=== PATIENT | male | born 1975 ===

== ENCOUNTER 2017-06-21 17:48 | Emergency (ER) | payer SELFPAY ==
[2017-06-21 18:03] VITALS: BP 116/72
--- NOTE | 2017-06-21 19:47 | UC ---
Back Pain HPI - HPI Summary HPI Summary: 42 yo male with the onset of right sided LBP when he woke up this AM about 1 AM he was doing work related defense tactics and suspect he injured himself them Today is his day off Pain with movement Hard to get comfortable Has not taken any OTC meds feels like he will have no trouble working tomorrow however want injury evaluated in case things don't improve no bowel or bladder dysfunction - History of Current Complaint Chief Complaint: UCBackPain Stated Complaint: BACK INJURY Time Seen by Provider: 06/21/17 19:17 Hx Obtained From: Patient Onset/Duration: Gradual Onset, Lasting Hours Timing: Constant Severity Initially: Mild Severity Currently: Moderate Pain Intensity: 4 Pain Scale Used: 0-10 Numeric Back Pain: Is Discrete @ - see image Character: Aching, Spasmodic, Stiffness Aggravating Factor(s): Movement Alleviating Factor(s): Rest Associated Signs And Symptoms: Positive: Negative Related History: Occupational Injury - Allergies/Home Medications Allergies/Adverse Reactions: Allergies Allergy/AdvReac Type Severity Reaction Status Date / Time No Known Allergies Allergy Verified 06/21/17 18:04 PMH/Surg Hx/FS Hx/Imm Hx Previously Healthy: Yes - norcardia infection (skin) - Surgical History Surgical History: Yes Surgery Procedure, Year, and Place: right leg - Family History Known Family History: Negative: Cardiac Disease, Hypertension, Diabetes - Social History Alcohol Use: Occasionally Substance Use Type: None Smoking Status (MU): Never Smoked Tobacco Review of Systems Constitutional: Negative Skin: Negative Eyes: Negative ENT: Negative Respiratory: Negative Cardiovascular: Negative Gastrointestinal: Negative Genitourinary: Negative Motor: Negative Neurovascular: Negative Musculoskeletal: Myalgia Neurological: Negative Psychological: Negative Is Patient Immunocompromised?: No All Other Systems Reviewed And Are Negative: Yes Physical Exam Triage Information Reviewed: Yes Appearance: Well-Appearing, No Pain Distress, Well-Nourished Vital Signs: Initial Vital Signs Temp 96.8 F 06/21/17 17:57 Pulse 50 06/21/17 17:57 Resp 18 06/21/17 17:57 BP 116/72 06/21/17 17:57 Pulse Ox 99 06/21/17 17:57 Eyes: Positive: Conjunctiva Clear ENT: Positive: Hearing grossly normal. Negative: Nasal congestion, Nasal drainage, Trismus, Muffled voice, Hoarse voice, Dental tenderness, Sinus tenderness Neck: Positive: Supple, Nontender Respiratory: Positive: Lungs clear, Normal breath sounds, No respiratory distress, No accessory muscle use Cardiovascular: Positive: RRR, No Murmur Musculoskeletal: Positive: ROM Intact, No Edema Neurological Exam: Normal Neurological: Positive: Alert Psychological Exam: Normal Skin Exam: Normal Back Pain Course/Dx - Differential Dx/Diagnosis Provider Diagnoses: right paraspinous myofasical strain/spasm. left rhomboid strain Discharge - Discharge Plan Condition: Stable Disposition: HOME Prescriptions: Cyclobenzaprine TAB* [Flexeril TAB*] 5 mg PO TID PRN #12 tab PRN Reason: Spasms Patient Education Materials: Low Back Strain (ED), Lower Back Exercises (ED) Referrals: Chip Saeed MD [Primary Care Provider] - Additional Instructions: aleve 2 pills twice daily as needed for pain don't take muscle relaxant and work or drive I expect marked improvement over the next 3-5 days I symptoms persist I suggest PT and re-evaluation here Images Front/Back of Body, Lg ([place]): 1 - pain here 2 - pain here
== END 2017-06-21 19:49 | disposition home or self-care (01) ==
LOC: UCEAST 17:48
DX: S39.012A Strain of muscle, fascia and tendon of lower back, initial encounter (principal); S46.912A Strain of unspecified muscle, fascia and tendon at shoulder and upper arm level, left arm, initial encounter; R25.2 Cramp and spasm; X58.XXXA Exposure to other specified factors, initial encounter; Y92.9 Unspecified place or not applicable
CPT/HCPCS: 99202; G0463